=== PATIENT | male | born 1955 | race Caucasian/White ===

== ENCOUNTER 2016-04-19 10:52 | Emergency (ER) | payer BC ==
[~2016-04-19] VITALS: Ht 177.8 cm; Wt 109.1 kg
[2016-04-19 10:56] VITALS: BP 248/129; PULSE 89; RESP 18; TEMP 98.4; O2SAT 98
[2016-04-19 10:59] VITALS: BP 248/129; PULSE 89; RESP 18; O2SAT 98
[2016-04-19] MEDS ORDERED: HYDROmorphone HCL PF 1 MG/ML VIAL IV PUSH ONE ×2 (11:00→13:15)
[2016-04-19] MEDS ORDERED: KETOROLAC TROMETHAMINE 30 MG/ML (IVP) VIAL IV PUSH ONE (11:00)
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
[2016-04-19 11:27] VITALS: BP 246/121; PULSE 75; RESP 18; O2SAT 98
[2016-04-19] MEDS ORDERED: amLODIPine BESYLATE 5 MG TAB PO ONE (11:45)
[2016-04-19 11:50] VITALS: BP 239/125; PULSE 82; RESP 18; O2SAT 95
[2016-04-19 11:53] LABS: BICARBONATE 30.3 MEQ/L (21.0-32.0)
[2016-04-19] MEDS ORDERED: AMLO5TAB2 PO (13:03)
[2016-04-19] MEDS ORDERED: MELO-1 PO (13:03)
[2016-04-19] MEDS ORDERED: HYDR-3533 PO ×2 (13:03→13:14)
[2016-04-19 13:27] VITALS: BP 227/128; PULSE 76; RESP 18; O2SAT 95
== END 2016-04-19 13:46 | disposition home or self-care (01) ==
LOC: NEPC 10:52
DX: M54.5 Low back pain (principal); M25.60 Stiffness of unspecified joint, not elsewhere classified; R03.0 Elevated blood-pressure reading, without diagnosis of hypertension; G89.29 Other chronic pain
CPT/HCPCS: 80048; 96374; 96375; 96376; 99283; J1170; J1885

== ENCOUNTER 2016-04-24 07:18 | Emergency (ER) | payer BC ==
[~2016-04-24] VITALS: Ht 177.8 cm; Wt 109.0 kg
[~2016-04-24 07:18] MED LIST: AMLO5TAB2 PO; HYDR-3533 PO; MELO-1 PO
[2016-04-24 07:20] VITALS: BP 212/123; PULSE 96; RESP 16; TEMP 98.1; O2SAT 96
[2016-04-24 07:37] VITALS: BP 208/117; PULSE 94; RESP 18; O2SAT 98
--- NOTE | 2016-04-24 08:13 | PD ---
HPI Chief Complaint: Hypertension Time Seen by Provider: 07:24 Travel History International Travel<30 days: No Contact w/Intl Traveler<30days: No Traveled to known affect area: No History of Present Illness HPI Patient is a 60 year old male presents to the emergency department for evaluation of elevated BP. Patient was seen last week for unrelated complaint and started on amlodipine at that time. Dr. Fernandez told him to return if his BP became elevated over 220 systolic. It has been just shy of this cutoff this mornin in the high 210's. Patient denies any CP/SOB/ABD pain/Dysuria/Hematuria/ Enuresis/Polyuria/Focal weakness nor headache. Patient states he actually feels well. has not taken his amlodipine this morning and has not yet followed up with PCP. Patient states he has a business trip coming up soon and just wanted to be checked. PFSH Past Medical History Medical History: Denies Significant Hx Hypertension: Yes Past Surgical History Surgical History: No Previous Surgery Social History Alcohol Use: No Tobacco Use: No Substance Use: No Allergies-Medications (Allergen,Severity, Reaction): Coded Allergies: No Known Allergies (Unverified , 04/24/16) Reported Meds & Prescriptions Reported Meds & Active Scripts Active Amlodipine (Amlodipine Besylate) 5 Mg Tab 5 Mg PO DAILY Review of Systems Except as stated in HPI: all other systems reviewed are Neg Physical Exam Narrative GENERAL: WD/WN overweight in NAD. SKIN: Warm and dry. HEAD: Atraumatic. Normocephalic. EYES: Pupils equal and round. No scleral icterus. No injection or drainage. ENT: No nasal bleeding or discharge. Mucous membranes pink and moist. NECK: Trachea midline. No JVD. CARDIOVASCULAR: Regular rate and rhythm. RESPIRATORY: No accessory muscle use. Clear to auscultation. Breath sounds equal bilaterally. GASTROINTESTINAL: Abdomen soft, non-tender, nondistended. Hepatic and splenic margins not palpable. MUSCULOSKELETAL: Extremities without clubbing, cyanosis, or edema. No obvious deformities. NEUROLOGICAL: Awake and alert. No obvious cranial nerve deficits. Motor grossly within normal limits. Five out of 5 muscle strength in the arms and legs. Normal speech. PSYCHIATRIC: Appropriate mood and affect; insight and judgment normal. Data Data Last Documented VS Vital Signs Date Time Temp Pulse Resp B/P Pulse Ox O2 Delivery O2 Flow Rate FiO2 04/24/16 07:37 94 18 208/117 98 Room Air 04/24/16 07:20 98.1 [facility] Medical Decision Making Medical Screen Exam Complete: Yes Emergency Medical Condition: Yes Differential Diagnosis Asymptomatic hypertension, hypertensive urgency, hypertensive emergency. Narrative Course Patient is a 60 year old male presents for asymptoamtic elevated hypertension. He has no s/s that suggest end organ failure. No indication for further emergent workup. Had BMP last week showing normal Cr. D/W patient elevated BP does increase risk of stroke/heart disease/kidney disease over lifetime but his body is likely adapted to this and will need slow snf control. Discussed continuing the medication as prescribed for now, keeping a log of BP to discuss with PCP at follow up. He is agreeable. Diagnosis Primary Impression: Elevated blood pressure reading Additional Instructions: Keep a record of your blood pressures as discussed follow-up with her primary care physician as scheduled. Disposition: 01 DISCHARGE HOME Condition: Stable Gurmeet Estrada MD Apr 24, 2016 08:12
== END 2016-04-24 09:13 | disposition home or self-care (01) ==
LOC: NEPC 07:18
DX: R03.0 Elevated blood-pressure reading, without diagnosis of hypertension (principal)
CPT/HCPCS: 99283